=== PATIENT | female | born 2000 | race Caucasian/White ===

== ENCOUNTER 2023-10-26 16:21 | Emergency (ER) | payer OTHER, BC, SELFPAY ==
[2023-10-26 16:30] VITALS: BP 127/76; PULSE 97; RESP 16; TEMP 36.9; O2SAT 97
--- NOTE | 2023-10-26 16:32 | ED.SKABFB ---
HPI - Skin/Abscess/Foreign Bdy General Chief complaint: Skin/Abscess/Foreign Body Stated complaint: Skin Problem/Hands Source: patient and RN notes reviewed Mode of arrival: ambulatory Limitations: no limitations History of Present Illness HPI narrative: Patient is a 23-year-old female who presents to the [facility] with complaints rash to bilateral hands. Patient states that she noted small bumps on the hands on October 09. She states that they were macular papular; denies blisters or vesicales. patient states that within the last week, her hands started to peel. She states that they are extremely dry and cracking at this time. She denies any other symptoms. Related Data Allergies Allergy/AdvReac Type Severity Reaction Status Date / Time No Known Allergies Allergy Verified 10/26/23 16:46 Review of Systems Review of Systems: CONSTITUTIONAL: Denies fever, chills, or sweats. EYES: Denies visual changes, redness, or discharge. ENT: Denies otalgia and sore throat CARDIOVASCULAR: Denies chest pain, palpitations, or edema. RESPIRATORY: Denies cough or dyspnea. GASTROINTESTINAL: Denies abdominal pain, nausea, vomiting, or diarrhea. GENITOURINARY: Denies dysuria or hematuria. SKIN: Reports rash. MUSCULOSKELETAL: Denies back pain, joint pain, or myalgia. NEUROLOGIC: Denies headache, numbness, or weakness. Pertinent positives per HPI. PMFSH Comments At the time of my signature, I reviewed and agree with the nursing past medical, surgical, social, and family history. There is no relevant family history pertinent to the patient complaint. Exam Narrative: GENERAL: This is a well-nourished, well-developed patient, in no apparent distress. HEAD: normocephalic, atraumatic. EYES: PERRL. Sclera clear/white. Vision is grossly intact. EARS: External ears normal, auditory canals clear and without drainage, TMs normal without perforation. Hearing grossly intact. NOSE: External nose normal with no obvious nasal discharge, nares without redness, no rhinorrhea. THROAT: Mucous membranes moist, posterior pharynx clear. NECK: Neck supple, non-tender without lymphadenopathy, masses or thyromegaly. CARDIOVASCULAR: Regular rate and rhythm without murmurs, gallops, or rubs. RESPIRATORY: Clear to auscultation. Breath sounds equal bilaterally. No wheezes, rales, or rhonchi. GASTROINTESTINAL: Abdomen soft, non-tender, nondistended. Bowel sounds are active. No hepato-splenomegaly, or palpable masses. No guarding. SKIN: warm, intact with no suspicious lesions, good texture and turgor. Dry, scaling rash to bilateral hands. NEURO: awake, alert, and oriented to person, place and time. There were no obvious focal neurologic abnormalities. EXTREMITIES: No clubbing, cyanosis, or edema. No joint tenderness, effusion, or edema noted. BACK: Nontender without deformity or crepitance. No flank tenderness. Course Course Level of Care: Express Care Visit Vital Signs Vital signs: Vital Signs Temperature 98.4 F 10/26/23 16:30 Pulse Rate 97 10/26/23 16:30 Respiratory Rate 16 10/26/23 16:30 Blood Pressure 127/76 10/26/23 16:30 Pulse Oximetry 97 10/26/23 16:30 Oxygen Delivery Room Air 10/26/23 16:30 Temperature 98.4 F 10/26/23 16:30 Pulse Rate 97 10/26/23 16:30 Respiratory Rate 16 10/26/23 16:30 Blood Pressure 127/76 10/26/23 16:30 Pulse Oximetry 97 10/26/23 16:30 Oxygen Delivery Room Air 10/26/23 16:30 Reviewed MDM - Skin/Abscess/Foreign Bdy MDM Narrative Medical decision making narrative: The most important part of your care is follow up with Primary care provider/dermatology. apply the steroid ointment starting today Avoid hot showers, Take cool showers. Apply a good moisturizing lotion to the skin. Return to the ER for new or worsening symptoms such as shortness of breath. Differential Diagnosis Differential diagnosis: Likely viral exanthem, urticaria, cellulitis, eczema and contact
== END 2023-10-26 16:53 | disposition home or self-care (01) ==
PROVIDERS: Emergency Provider Nurse Practitioner; PCP Pediatrics Adolescent Medicine
DX: L30.9 Dermatitis, unspecified (principal); J45.990 Exercise induced bronchospasm
CPT/HCPCS: 99213; G0463

== ENCOUNTER 2024-01-20 17:10 | Emergency (ER) | payer OTHER, BC, SELFPAY ==
[2024-01-20 17:17] VITALS: BP 132/79; PULSE 92; RESP 18; TEMP 36.9; O2SAT 99
--- NOTE | 2024-01-20 17:20 | ED.URI ---
HPI - URI/Sore Throat General Chief Complaint: Upper Respiratory Infection Stated Complaint: Diarrhea/Vomiting/Sore Throat Time Seen by Provider: 01/20/24 17:20 Source: patient, RN notes reviewed and old records reviewed Mode of arrival: ambulatory Limitations: no limitations History of Present Illness HPI Narrative: 23-year-old female presents to the [facility] with complaints of vomiting, diarrhea and a sore throat that started at 4:00 a.m., 13 hours ago. Has drink a green tea that helps with her symptoms Denies any abdominal pain. Denies fevers. Denies chest pain. Denies any urinary symptoms or back pain Onset (ago): hour(s) (13) Treatments prior to arrival: other (Green tea) Related Data Allergies Allergy/AdvReac Type Severity Reaction Status Date / Time No Known Allergies Allergy Verified 10/26/23 16:46 Review of Systems Review of Systems: All systems reviewed & are unremarkable except as noted in HPI and below Constitutional: Constitutional: Reports no additional constitutional complaints Eyes: Eyes: Reports no additional eye complaints ENT: Reports as per HPI and Reports sore throat Cardiovascular: Cardiovascular: Reports no additional cardiovascular complaints, Denies chest pain and Denies dyspnea Respiratory: Respiratory: Reports no additional respiratory complaints, Denies chest congestion, Denies cough and Denies dyspnea Gastrointestinal: Gastrointestinal: Reports as per HPI, Denies abdominal pain, Reports diarrhea, Denies nausea and Reports vomiting Musculoskeletal: Musculoskeletal: Reports no additional musculoskeletal complaints Integumentary/Breasts: Skin/Breast: Reports system reviewed and no additional complaints, except as docu Neurologic: Reports system reviewed and no additional complaints, except as documented Psychiatric: Psychiatric: Reports no additional psychiatric complaints Allergic/Immunologic: Allergic/Immunologic: Reports no additional allergic/immunologic complaints PMFSH Comments At the time of my signature, I reviewed and agree with the nursing past medical, surgical, social, and family history. There is no relevant family history pertinent to the patient complaint. Exam Const: General: cooperative, healthy appearing, comfortable, no acute distress, well developed, alert and well nourished Nutritional Appearance: well nourished Orientation/consciousness: patient oriented x3 Limitations: no limitations HENMT: Head: normal to inspection Ears: hearing grossly normal bilaterally, external ears normal, TM's normal bilaterally, EAC's normal, mastoids normal and no periauricular adenopathy Face/Nose/Sinus: Normal external nose present, Normal nares present, Normal nasal mucous membranes and turbinates present, normal facial exam and face symmetric Face and sinus: normal facial exam, sinuses nontender and face symmetric Mouth: Yes Normal oral and palatal mucosa present, Yes lip normal and Yes moist mucous membranes Throat: posterior oropharynx normal, tonsils normal, uvula midline and postnasal drainage Eyes: General: appearance normal, both eyes and all related structures Alignment and Position: alignment normal Periorbital: periorbital findings normal Pupils: Equal, round and reactive pupils present EOM: EOMs intact bilaterally Neck: Neck: normal visual inspection, full ROM, no lymphadenopathy and no meningeal signs Chest: Chest palpation & inspection: normal inspection of the chest Resp: Effort & Inspection: normal respiratory effort and able to speak in complete sentences Auscultation: clear to auscultation bilaterally, no crackles, no rales, no rhonchi and no wheezes Cardio: Rate: regular rate Rhythm: regular rhythm GI: GI Palp: No abdominal tenderness Back/Spine/Pelvis: Cervical Spine: cervical ROM normal Skin: General skin exam: normal color and no rashes or lesions noted Lesions: no lesions Rashes: no rashes Wounds: no wounds Neuro: General: patient oriented x3,
== END 2024-01-20 17:43 | disposition home or self-care (01) ==
PROVIDERS: Emergency Provider Nurse Practitioner; PCP Internal Medicine Geriatric Medicine
DX: J06.9 Acute upper respiratory infection, unspecified (principal); R09.82 Postnasal drip
CPT/HCPCS: 87081; 87880; 99213; G0463

== ENCOUNTER 2025-07-09 16:23 | Emergency (ER) | payer OTHER, SELFPAY ==
[2025-07-09 16:34] VITALS: BP 124/80; PULSE 78; RESP 18; TEMP 36.9; O2SAT 99
--- OUTSIDE RECORDS SUMMARY | 2025-07-09 16:57 | XMS_ITS | Clinical Summary ---
Author Organization [facility] Address [address] [place] [address] Phone Care Team Providers Care Liability Claims Adjuster Name Role Phone Provider, None Primary Care Provider Unavailabl e Allergies No known active allergies Medications ibuprofen (MOTRIN) 200 MG Tablet Take 3 Tablets by mouth every 6 hours. 30 Tablet 11/07/2022 Active cyclobenzaprine (FLEXERIL) 10 MG Tablet Take 1 Tablet by mouth 3 times daily as needed for Muscle spasms. 30 Tablet 11/07/2022 Active Social History Tobacco Use Types Packs/Day Years Used Date Smoking Tobacco: Never Smokeless Tobacco: Never Tobacco Cessation:Counseling Given: Not Answered Comments No Sex and Gender Information Value Date Recorded Sex Assigned at Not on file Legal Sex Female 7:29 PM CDT Gender Identity Not on file Sexual Orientation Not on file Last Filed Vital Signs Vital Sign Reading Time Taken Comments Blood Pressure 127/76 01/30/2023 9:02 PM CDT Pulse 77 01/30/2023 9:03 PM CDT Temperature 36.2 C (97.1 F) 01/30/2023 8:28 PM CDT Respiratory Rate 16 01/30/2023 9:02 PM CDT Oxygen Saturation 99% 01/30/2023 9:03 PM CDT Inhaled Oxygen Concentration - - Weight 88.5 kg (195 lb) 01/30/2023 8:28 PM CDT Height 154.9 cm (5' 1) 01/30/2023 8:28 PM CDT Body Mass Index 36.84 01/30/2023 8:28 PM CDT Plan of Treatment Not on file Insurance [facility] Care Teams Liability Claims Adjuster Relationship Specialty Start Date End Date Provider, None [place] PCP - General 11/07/22
--- OUTSIDE RECORDS SUMMARY | 2025-07-09 16:57 | XMS_ITS | Clinical Summary ---
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 CERNER Comment: Interpretive Data Fasting glucose >/= 126 mg/dl is diagnostic for diabetes. Fasting is defined as no caloric intake for at least 8 hours. Fasting glucose between 100 mg/dl to 125 mg/dl is diagnostic of prediabetes. In a patient with classic symptoms of hyperglycemia or hyperglycemic crisis, a random glucose >/= 200 mg/dl is diagnostic for diabetes. In the absence of unequivocal hyperglycemia, results should be confirmed by repeat testing. The classification and Diagnosis of Diabetes Diabetes Care 202; 46: S19-S40. Current interpretive data was last revised 2022. Testing performed by: [address] [address] Calcium 9.2 8.5 - 10.3 mg/dL CERNER Comment:Testing performed by : [address], [address] Bilirubin, total 0.4 0.1 - 1.2 mg/dL CERNER Comment:Testing performed by : [address], [place]., [address] Protein, pl 7.1 6.5 - 8.5 g/dL CERNER CH Comment:Testing performed by : [facility], [address] [place] [address]., [address] Albumin 4.2 3.5 - 5.0 g/dL CERNER CH Comment:Testing performed by : [facility], [address] [place] [address]., [address] Alk phos 79 40 - 130 Units/L CERNER CH Comment:Testing performed by : [facility], [address] [place] [address]., [address] ALT 26 7 - 45 Units/L CERNER CH Comment:Testing performed by : [address] [address] AST 25 10 - 45 Units/L CERNER CH Comment:Testing performed by : [address] [address] Blood 04/22/2025 10:3 7 AM CDT 04/22/2025 4:17 PM CDT Erika Tellez MD LAB BLOOD ORDERABLES Final Result [address] Department [place] [address] * N. gonorrhoeae/C. trachomatis Amplification Thin prep (01/26/2023 11:40 AM CDT) C. trachomatis Not detected Not detected [facility] N. gonorrhoeae Not detected Not detected [facility] Comment: Testing performed by the [facility]. This assay detects Chlamydia trachomatis and Neisseria gonorrhoeae by nucleic acid amplification testing (NAAT). This test is approved by the [place] Food and Drug Administration and the performance characteristics have been verified by the laboratory. The performance characteristics of this test have not been evaluated in women or individuals less than 16 years of age. Thin prep 01/26/2023 11:4 0 AM CDT 01/26/2023 4:57 PM CDT Shira Law DO LAB MICROBIOLOGY - GENE RAL ORDERABLES Final Result ANJELICA [address] Department [place] [address] * Pap with reflex to High Risk HPV (01/26/2023 9:18 AM CDT) Thin prep (Pap test) 01/26/2023 9:18 AM CDT 01/26/2023 9:18 AM CDT Narrative PATHOLOGY - 01/28/2023 1:42 PM CDT [facility] Department of Pathology [address] [place] [address] Final Report Note to Patients: This report may contain a detailed description of human tissue sent by a health care provider to the laboratory for pathologic evaluation. The content of this report is essential for diagnosis and may provide important critical findings. This information may be unfamiliar to patients to review without a medical professional present. It is advised that the patient review this report in the presence of a health care provider who can answer questions and explain the details. Patient Name: VICTOR HUGO GOODMAN Address: [address] [place] [address] Gender: F : 2000 (Age: 22) Service: Location: N : [id number] Hospital #: [id number] Patient Type: SPECIMEN Taken: 01/26/2023 Received: 01/26/2023 Accessioned:: 01/27/2023 Reported: 01/28/2023 Physician(s): Humble Rivera D.O. Diagnosis: SOURCE OF SPECIMEN Imaged Thinprep Pap Test w/ Reflex HPV - Spinning Operator Cytologic Material: STATEMENT OF ADEQUACY - Satisfactory for evaluation; endocervical/transformation zone component present GENERAL CATEGORIZATION: - Negative for intraepithelial lesion or malignancy INTERPRETATION: - Numerous RBC's NOVA Jones(ASCP) Report Electronically Reviewed and Signed Out By NOVA Jones(ASCP) 01/28/2023 13:42:55Specimen(s) Received: A: Imaged Thinprep Pap Test w/ Reflex HPV - Spinning Operator Cytologic Material Clinical History: Last Menstrual Period: 01/24/23 The Pap test is a screening test used to aid in the detection of cervical cancer and its precursors. It should not be the sole means by which malignant and premalignant lesions are diagnosed. Both false negative and false positive results may occur. It also has poor sensitivity for the detection of endometrial lesions and should not be used to evaluate suspected endometrial abnormalities. For these reasons it is most important to obtain Pap tests at regular intervals. The performance characteristics of some immunohistochemical stains, fluorescence in-situ hybridization tests and immunophenotyping by flow cytometry cited in this report (if any) were determined by the Surgical Pathology Department at [facility] as part of an ongoing associate quality engineer program and in compliance with federally mandated regulations drawn from the Clinical Laboratory Improvement Act of 1988 (CLIA '88). Some of these tests rely on the use of analyte specific reagents and are subject to specific labeling requirements by the [place] Food and Drug Administration. Such diagnostic tests may only be performed in a facility that is certified by the Department of Health and Human Services as a high complexity laboratory under CLIA '88. The FDA has determined that such clearance or approval is not necessary. This test is used for clinical purposes. It should not be regarded as investigational or for research. Nevertheless, federal rules concerning the medical use of analyte specific reagents require that the following disclaimer be attached to the report: This test was developed and its performance characteristics determined by the Surgical Pathology Department [facility]. It has not been cleared or approved by the U. S. Food and Drug Administration. Shira Law DO LAB CYTOLOGY ORDERABLES Final Result PATHOLOGY [address] [place] [address] from Last 3 Months or Most Recently Relevant to Health Maintenance Insurance [facility] Advance Directives For more information, please contact: [phone] Documents on File Type Date Recorded Patient M1 Armor Crewman Expl anation ADVANCE DIRECTIVE 04/18/2025 POWER OF A TTORNEY-MEDICAL ADVANCE DIRECTIVE 03/19/2024 POWER OF A TTORNEY-MEDICAL Care Teams Sales Market Leader Relationship Specialty Start Date End Date Erika Tellez MD PCP - General Internal Medicine 04/13/22 Shira Law DO [address] [place] [address] Consulting Physician Obstetrics and Gynecology 03/19/24 Mary Cox, [address] [place] [address] Machining Department Supervisor Professional Counseling 04/18/25
--- NOTE | 2025-07-09 17:03 | ED_ITS ---
HPI - URI/Sore Throat General Chief Complaint: Upper Respiratory Infection Stated Complaint: Sore throat Time Seen by Provider: 07/09/25 17:03 Source: patient, RN notes reviewed and old records reviewed Mode of arrival: ambulatory Limitations: no limitations History of Present Illness HPI Narrative: 24 year old female accompanied by significant other with reports of having sore throat since last night and did remove some tonsil stones today making throat increasingly sore and swollen. Patient reports no known fevers, chills or sweats, denies any ear pain or any cough or any headache pain.Patient reports that she has increased pain with swallowing. Patient has not taken any OTC medications for her symptoms.Patient admits to some sinus congestion and drainage. MD elicited complaint: sore throat, rhinorrhea and nasal congestion Onset (ago): day(s) (since yesterday evening) Pain scale (0-10): 5 Able to tolerate fluids by mouth: Yes Exacerbating factors: swallowing Treatments prior to arrival: none Related Data Home Medications ?Medication ?Instructions ?Recorded ?Confirmed ?Last Taken ?Type tirzepatide (weight loss) subcut 07/09/25 Unknown His tory Allergies Allergy/AdvReac Type Severity Reaction Status Date / Time No Known Allergies Allergy Verified 07/09/25 16:33 Review of Systems Review of Systems: CONSTITUTIONAL: Denies malaise, chills, sweats, or fever. EYES: Denies visual changes, redness, or discharge. ENT: Reports rhinorrhea, congestion, no acute sinus pain, no otalgia and positive for sore throat. CARDIOVASCULAR: Denies chest pain, palpitations, or edema. RESPIRATORY: Reports no cough.? Denies dyspnea. GASTROINTESTINAL: Denies abdominal pain, nausea, vomiting, diarrhea SKIN: Denies rash or itching. MUSCULOSKELETAL: Denies myalgia. NEUROLOGIC: Denies headache. All systems reviewed & are unremarkable except as noted in HPI and below PMFSH Past Medical History Medical History (Updated 07/10/25 @ 11:43 by Kimberly Escobar APRN) Sore throat Social History Social History (Updated 07/10/25 @ 11:33 by Kimberly Escobar APRN) Alcohol intake: current Alcohol use details: social Substance use type: does not use Living arrangements: with family Gender identity (if verbalized by the patient): Female Comments At time of signature, agree with nursing past medical, surgical, social and family history. There is no relevant family history pertinent to the presenting complaint Exam Narrative: GENERAL: Well-appearing, well-nourished, and in no acute distress. HEAD: Normocephalic EYES: PERRLA, conjunctivae clear ENT: Nares clear, turbinates edematous and erythematous, clear discharge no acute sinus pressure or headache. Mucous membranes moist. TM pearly orantes with dull light reflex bilaterally; no tragal tenderness. Oropharynx erythematous without lesions. Tonsils red minimally enlarged and without exudate, no drooling, no hoarseness, no trismus, uvula midline.post nasal drainage noted. NECK: Supple. No lymphadenopathy CHEST: Clear to auscultation, breath sounds equal. No wheezing, rhonchi, rales, or stridor. No respiratory distress, speaks in full sentences.no cough noted SAO2 99% on room air HEART: Regular rate and rhythm. No murmur heard. SKIN: Warm, dry, no rash. NEURO: Alert and oriented x3. PSYCH: Normal mood and affect Course Course Emergency Course: Patient is aware of diagnosis, understands and agrees to treatment plan.? Anticipatory guidance given.? Patient agrees to follow-up as directed and is aware of reasons to seek care at the emergency department. Portions of this record may have been created with voice recognition software Level of Care: Express Care Visit Vital Signs Vital signs: Vital Signs Temperature 36.9 C 07/09/25 16:34 Pulse Rate 78 07/09/25 16:34 Respiratory Rate 18 07/09/25 16:34 Blood Pressure 124/80 07/09/25 16:34 Pulse Oximetry 99 07/09/25 16:34 Oxygen Delivery Room Air 07/09/25 16:34 Temperature 36.9 C 07/09/25 16:34 Pulse Rate 78 07/09/25 16:34 Respiratory Rate 18 07/09/25 16:34 Blood Pressure 124/80 07/09/25 16:34 Pulse Oximetry 99 07/09/25 16:34 Oxygen Delivery Room Air 07/09/25 16:34 Reviewed MDM - URI/Sore Throat MDM Narrative Medical decision making narrative: Differential diagnosis considered: Watson virus, strep pharyngitis, allergic rhinitis, upper respiratory tract infection, sinusitis, rhinosinusitis, nasopharyngitis. viral pharyngitis, otitis media, otitis externa, pneumonia, bronchitis, viral cough syndrome, viral syndrome, and influenza.? Exam findings show no acute concerns or changes; patient is non-toxic appearing and is in no distress.? Patient is appropriate for outpatient treatment and follow-up. Differential Diagnosis Differential diagnosis: Likely upper respiratory infection, viral infection, pharyngitis and other (strep pharyngitis) Medical Records Attestation: I reviewed the patient's medical records. Lab Data Attestation: I reviewed the patient's lab results. Lab results narrative: strep screen negative, culture sent Labs: Lab Results 07/09/25 Range/Units 17:05 POC Grp A Strep Screen Negative (Negative) Critical Care Time Critical Care Time Critical Care Time: No Discharge Plan Discharge Clinical Impression: URI, acute Pharyngitis, acute Qualifiers: Pharyngitis/tonsillitis etiology: unspecified etiology Qualified Code(s): J02.9 - Acute pharyngitis, unspecified Patient Disposition: Home Condition: Stable Instructions: Pharyngitis (ED), Upper Respiratory Infection (ED) Additional Instructions: Increase fluids especially juices and water Utih-obm-qwodbks cough and cold medicine of your choice for your symptoms Zyrtec or Claritin daily magic mouthwash take as prescribed heat to the face 20-30 minutes 4-6 times a day for pain Salt water gargles, throat lozenges or throat sprays as desired Your strep test today was negative. A throat culture will be sent to the laboratory for further testing. IF the test is positive, you will receive a phone call within 48 hours and an appropriate antibiotic will be initiated at that time. Patient Language: Yoruba Prescriptions: New Magic Mouthwash (Dr. Braxton) 120 mL suspension 10 ml PO QID Qty: 120 0RF Rx Instructions: diphenhydramine 12.5 mg/5 mL oral elixir 40 mL; Lidocaine Viscous 2 % mucosal solution 40 mL; Maalox 200 mg-200 mg-20 mg/5 mL oral suspension 40 mL; Per 120 mL No Action tirzepatide (weight loss) [Zepbound] subcut Follow-up/Referrals: UNKNOWN,DOCTOR [Primary Care Provider] Time of Disposition: 17:18 Quality [place] Coma Scale Eyes: Open Verbal: Oriented and Alert Motor: Follows Commands [place] Coma Total Score: 15
[2025-07-09 17:06] LABS: EDSTREPNEGPOS1 Negative (Negative)
== END 2025-07-09 17:27 | disposition home or self-care (01) ==
PROVIDERS: Emergency Provider Registered Nurse
DX: J06.9 Acute upper respiratory infection, unspecified (principal)
CPT/HCPCS: 87081; 87880; 99213; G0463